=== PATIENT | female | born 1960 | race Caucasian/White ===

== ENCOUNTER 2016-08-25 12:06 | Inpatient (IN) | payer MEDICARE, MEDICAID ==
[~2016-08-25] VITALS: Ht 165.1 cm; Wt 67.4 kg
--- NOTE | 2016-08-25 15:01 | REP ---
RIGHT HIP, TWO VIEWS: There is no evidence of an acute fracture, dislocation or intrinsic bone disease. IMPRESSION: No fracture or dislocation. Signed by Oracio Vuong MD 08/25/2016 08:25 P
[2016-08-25 15:31] LABS: BASO % 0.2 % (0.0-1.0); EOS # 0.2 K/mm3 (0.0-0.50); EOS % 2.3 % (0.0-3.0); LARGE UNSTAINED CELL # 0.1 K/mm3 (0.0-0.4); LARGE UNSTAINED CELL % 1.7 % (0.0-4.0); LYMPH % 28.1 % (24.0-44.0); MEAN CORPUSCULAR HEMOGLOBIN 30.9 pg (27.0-33.0); MEAN CORPUSCULAR HGB CONC 33.9 g/dl (32.0-36.5); MONO # 0.5 K/mm3 (0.0-0.8); MONO % 7.2 % (0.0-5.0); NEUTROPHILS # 4.2 K/mm3 (1.8-7.7); NEUTROPHILS % 60.5 % (36.0-66.0); PLATELET COUNT, AUTOMATED 252 k/mm3 (150-450); RED CELL DISTRIBUTION WIDTH 12.4 % (11.5-14.5)
[2016-08-25] MEDS ORDERED: OMEP20CA3 PO (15:40)
[2016-08-25] MEDS ORDERED: MEMA1TAB2 PO (15:40)
[2016-08-25] MEDS ORDERED: MONT10TA2 PO (15:40)
[2016-08-25] MEDS ORDERED: OMEP40CA2 PO (15:41)
[2016-08-25 15:54] LABS: ALBUMIN 3.5 GM/DL (3.2-5.2); ALBUMIN/GLOBULIN RATIO 1.03 (1.00-1.93); ALKALINE PHOSPHATASE 119 U/L (45-117); ALT/SGPT 17 U/L (12-78); ANION GAP 5 MEQ/L (8-16); AST/SGOT 11 U/L (15-37); BILIRUBIN,DIRECT 0.1 MG/DL (0.0-0.2); BILIRUBIN,TOTAL 0.3 MG/DL (0.2-1.0); BLOOD UREA NITROGEN 19 MG/DL (7-18); CALCIUM LEVEL 8.6 MG/DL (8.5-10.1); CARBON DIOXIDE LEVEL 31 MEQ/L (21-32); CHLORIDE LEVEL 109 MEQ/L (98-107); CREATININE FOR GFR 0.55 MG/DL (0.55-1.02); GLOMERULAR FILTRATION RATE > 60.0 (>51); GLUCOSE, FASTING 120 MG/DL (70-105); POTASSIUM SERUM 4.1 MEQ/L (3.5-5.1); SODIUM LEVEL 145 MEQ/L (136-145); TOTAL PROTEIN 6.9 GM/DL (6.4-8.2)
[2016-08-25] MEDS ORDERED: ONDANSETRON 4MG/2ML VIAL (J2405) IV PRN (17:30)
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
[2016-08-25 20:50] VITALS: BP 150/83
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
[2016-08-25] MEDS: MEMANTINE 5MG TABLET (NAMENDA) PO SCH (22:08)
[2016-08-25] MEDS: SENOKOT S TAB PO SCH (22:08)
[2016-08-26 06:00] VITALS: BP 121/70
[2016-08-26 06:16] LABS: MEAN CORPUSCULAR HEMOGLOBIN 30.3 pg (27.0-33.0); MEAN CORPUSCULAR HGB CONC 33.5 g/dl (32.0-36.5); MEAN CORPUSCULAR VOLUME 90.6 fl (80.0-96.0); RED CELL DISTRIBUTION WIDTH 13.2 % (11.5-14.5); WHITE BLOOD COUNT 6.6 K/mm3 (4.0-10.0)
[2016-08-26 06:52] LABS: ANION GAP 8 MEQ/L (8-16); BLOOD UREA NITROGEN 19 MG/DL (7-18); CALCIUM LEVEL 8.2 MG/DL (8.5-10.1); CARBON DIOXIDE LEVEL 28 MEQ/L (21-32); CHLORIDE LEVEL 107 MEQ/L (98-107); GLOMERULAR FILTRATION RATE > 60.0 (>51); GLUCOSE, FASTING 100 MG/DL (70-105); MAGNESIUM LEVEL 2.3 MG/DL (1.8-2.4); SODIUM LEVEL 143 MEQ/L (136-145)
--- NOTE | 2016-08-26 08:06 | ECGEPIP ---
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 Order Number: [id number] Reading MD: Shanta Verduzco Measurements Intervals [place] Rate: 71 P: 55 [place]: 139 QRS: 7 QRSD: 85 T: 7 QT: 374 QTc: 407 Interpretive Statements SINUS RHYTHM NSTTW ABNORMALITY NO PRIOR FOR COMPARISON Electronically Signed On 08-26-2016 8:06:05 EST by Shanta Verduzco
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
[2016-08-26] MEDS: OMEPRAZOLE 20 MG CAP PO SCH (10:22)
[2016-08-26] MEDS: MONTELUKAST 10 MG TAB PO SCH (10:23)
[2016-08-26] MEDS: ACETAMINOPHEN TAB 650MG DOSE (2X325MG) PO PRN (10:23)
[2016-08-26] MEDS: SENOKOT S TAB PO SCH ×2 (10:24→21:08)
[2016-08-26] MEDS: ENOXAPARIN 30 MG/0.3 ML SYR (J1650) SC SCH (10:24)
[2016-08-26 12:00] VITALS: BP 114/69
[2016-08-26 14:00] VITALS: BP 127/74
[2016-08-26 20:00] VITALS: BP 140/68
[2016-08-26] MEDS: MEMANTINE 5MG TABLET (NAMENDA) PO SCH (21:08)
[2016-08-27 06:00] VITALS: BP 130/62
[2016-08-27 06:18] LABS: MEAN CORPUSCULAR HEMOGLOBIN 30.3 pg (27.0-33.0); MEAN CORPUSCULAR HGB CONC 33.4 g/dl (32.0-36.5); MEAN CORPUSCULAR VOLUME 90.6 fl (80.0-96.0); RED CELL DISTRIBUTION WIDTH 13.1 % (11.5-14.5); WHITE BLOOD COUNT 7.7 K/mm3 (4.0-10.0)
[2016-08-27 06:36] LABS: ANION GAP 5 MEQ/L (8-16); BLOOD UREA NITROGEN 18 MG/DL (7-18); CALCIUM LEVEL 8.7 MG/DL (8.5-10.1); CARBON DIOXIDE LEVEL 30 MEQ/L (21-32); CHLORIDE LEVEL 109 MEQ/L (98-107); CREATININE FOR GFR 0.55 MG/DL (0.55-1.02); GLOMERULAR FILTRATION RATE > 60.0 (>51); GLUCOSE, FASTING 97 MG/DL (70-105); MAGNESIUM LEVEL 2.2 MG/DL (1.8-2.4); POTASSIUM SERUM 4.2 MEQ/L (3.5-5.1); SODIUM LEVEL 144 MEQ/L (136-145)
[2016-08-27] MEDS ORDERED: INFLUENZA QUADRIVALENT PF VACCINE 0.5ML SYRINGE/VIAL (90686) IM ONE (09:00)
[2016-08-27] MEDS: SENOKOT S TAB PO SCH ×2 (09:08→20:17)
[2016-08-27] MEDS: OMEPRAZOLE 20 MG CAP PO SCH (09:09)
[2016-08-27] MEDS: MONTELUKAST 10 MG TAB PO SCH (09:09)
[2016-08-27] MEDS: ENOXAPARIN 30 MG/0.3 ML SYR (J1650) SC SCH (09:09)
[2016-08-27] MEDS: ACETAMINOPHEN TAB 650MG DOSE (2X325MG) PO PRN ×2 (10:01→20:18)
[2016-08-27 14:00] VITALS: BP 122/78
[2016-08-27] MEDS: MEMANTINE 5MG TABLET (NAMENDA) PO SCH (20:17)
[2016-08-27 22:00] VITALS: BP 119/77
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
[2016-08-28 06:00] VITALS: BP 111/70
[2016-08-28 06:58] LABS: MEAN CORPUSCULAR HEMOGLOBIN 30.2 pg (27.0-33.0); MEAN CORPUSCULAR HGB CONC 33.9 g/dl (32.0-36.5); RED CELL DISTRIBUTION WIDTH 13.1 % (11.5-14.5)
[2016-08-28 07:20] LABS: ANION GAP 4 MEQ/L (8-16); BLOOD UREA NITROGEN 16 MG/DL (7-18); CALCIUM LEVEL 9.1 MG/DL (8.5-10.1); CARBON DIOXIDE LEVEL 33 MEQ/L (21-32); CHLORIDE LEVEL 105 MEQ/L (98-107); GLOMERULAR FILTRATION RATE > 60.0 (>51); GLUCOSE, FASTING 101 MG/DL (70-105); MAGNESIUM LEVEL 2.3 MG/DL (1.8-2.4); POTASSIUM SERUM 3.9 MEQ/L (3.5-5.1); SODIUM LEVEL 142 MEQ/L (136-145)
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
[2016-08-28] MEDS: OMEPRAZOLE 20 MG CAP PO SCH (09:21)
[2016-08-28] MEDS: MONTELUKAST 10 MG TAB PO SCH (09:21)
[2016-08-28] MEDS: SENOKOT S TAB PO SCH ×2 (09:21→22:57)
[2016-08-28] MEDS: ENOXAPARIN 30 MG/0.3 ML SYR (J1650) SC SCH (09:21)
[2016-08-28] MEDS: LevoFLOXacin 500 MG TABLET PO SCH (11:38)
[2016-08-28] MEDS: ACETAMINOPHEN TAB 650MG DOSE (2X325MG) PO PRN ×2 (16:13→22:58)
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
[2016-08-28 22:00] VITALS: BP 114/69
[2016-08-28] MEDS: MEMANTINE 5MG TABLET (NAMENDA) PO SCH (22:58)
[2016-08-29] MEDS: LevoFLOXacin 500 MG TABLET PO SCH (06:01)
[2016-08-29 07:23] LABS: MEAN CORPUSCULAR HEMOGLOBIN 29.9 pg (27.0-33.0); MEAN CORPUSCULAR HGB CONC 33.8 g/dl (32.0-36.5); MEAN CORPUSCULAR VOLUME 88.4 fl (80.0-96.0); RED CELL DISTRIBUTION WIDTH 13.2 % (11.5-14.5); WHITE BLOOD COUNT 5.7 K/mm3 (4.0-10.0)
[2016-08-29 07:37] LABS: ANION GAP 7 MEQ/L (8-16); BLOOD UREA NITROGEN 16 MG/DL (7-18); CALCIUM LEVEL 9.1 MG/DL (8.5-10.1); CARBON DIOXIDE LEVEL 30 MEQ/L (21-32); CHLORIDE LEVEL 104 MEQ/L (98-107); CREATININE FOR GFR 0.59 MG/DL (0.55-1.02); GLOMERULAR FILTRATION RATE > 60.0 (>51); GLUCOSE, FASTING 96 MG/DL (70-105); MAGNESIUM LEVEL 2.3 MG/DL (1.8-2.4); POTASSIUM SERUM 4.2 MEQ/L (3.5-5.1); SODIUM LEVEL 141 MEQ/L (136-145)
[2016-08-29 08:20] VITALS: BP 116/73
[2016-08-29] MEDS: MONTELUKAST 10 MG TAB PO SCH (08:56)
[2016-08-29] MEDS: ENOXAPARIN 30 MG/0.3 ML SYR (J1650) SC SCH (08:58)
[2016-08-29] MEDS: SENOKOT S TAB PO SCH ×2 (08:58→20:08)
[2016-08-29] MEDS: OMEPRAZOLE 20 MG CAP PO SCH (09:03)
[2016-08-29 14:00] VITALS: BP 116/69
[2016-08-29] MEDS: MEMANTINE 5MG TABLET (NAMENDA) PO SCH (20:08)
[2016-08-29 22:00] VITALS: BP 137/87
[2016-08-30] MEDS: LevoFLOXacin 500 MG TABLET PO SCH (05:06)
[2016-08-30] MEDS: ACETAMINOPHEN TAB 650MG DOSE (2X325MG) PO PRN ×3 (06:47→17:28)
[2016-08-30 06:49] LABS: MEAN CORPUSCULAR HEMOGLOBIN 30.6 pg (27.0-33.0); MEAN CORPUSCULAR HGB CONC 34.4 g/dl (32.0-36.5); MEAN CORPUSCULAR VOLUME 88.9 fl (80.0-96.0); RED CELL DISTRIBUTION WIDTH 13.1 % (11.5-14.5); WHITE BLOOD COUNT 5.6 K/mm3 (4.0-10.0)
[2016-08-30 06:59] LABS: ANION GAP 7 MEQ/L (8-16); BLOOD UREA NITROGEN 13 MG/DL (7-18); CALCIUM LEVEL 8.9 MG/DL (8.5-10.1); CARBON DIOXIDE LEVEL 31 MEQ/L (21-32); CHLORIDE LEVEL 103 MEQ/L (98-107); CREATININE FOR GFR 0.54 MG/DL (0.55-1.02); GLOMERULAR FILTRATION RATE > 60.0 (>51); GLUCOSE, FASTING 93 MG/DL (70-105); MAGNESIUM LEVEL 2.2 MG/DL (1.8-2.4); POTASSIUM SERUM 3.9 MEQ/L (3.5-5.1); SODIUM LEVEL 141 MEQ/L (136-145)
[2016-08-30 08:30] VITALS: BP 114/74
[2016-08-30] MEDS: OMEPRAZOLE 20 MG CAP PO SCH (08:58)
[2016-08-30] MEDS: MONTELUKAST 10 MG TAB PO SCH (08:59)
[2016-08-30] MEDS: SENOKOT S TAB PO SCH ×2 (08:59→21:04)
[2016-08-30] MEDS: ENOXAPARIN 30 MG/0.3 ML SYR (J1650) SC SCH (09:00)
[2016-08-30] MEDS: MEMANTINE 5MG TABLET (NAMENDA) PO SCH (21:03)
[2016-08-31] MEDS: LevoFLOXacin 500 MG TABLET PO SCH (05:58)
[2016-08-31 06:00] VITALS: BP 109/69
[2016-08-31 06:46] LABS: MEAN CORPUSCULAR HEMOGLOBIN 30.2 pg (27.0-33.0); MEAN CORPUSCULAR HGB CONC 33.9 g/dl (32.0-36.5); RED CELL DISTRIBUTION WIDTH 13.3 % (11.5-14.5); WHITE BLOOD COUNT 5.7 K/mm3 (4.0-10.0)
[2016-08-31 07:03] LABS: ANION GAP 4 MEQ/L (8-16); BLOOD UREA NITROGEN 13 MG/DL (7-18); CALCIUM LEVEL 9.1 MG/DL (8.5-10.1); CARBON DIOXIDE LEVEL 32 MEQ/L (21-32); CHLORIDE LEVEL 104 MEQ/L (98-107); GLOMERULAR FILTRATION RATE > 60.0 (>51); GLUCOSE, FASTING 93 MG/DL (70-105); MAGNESIUM LEVEL 2.2 MG/DL (1.8-2.4); POTASSIUM SERUM 4.3 MEQ/L (3.5-5.1); SODIUM LEVEL 140 MEQ/L (136-145)
[2016-08-31] MEDS: OMEPRAZOLE 20 MG CAP PO SCH (09:47)
[2016-08-31] MEDS: ENOXAPARIN 30 MG/0.3 ML SYR (J1650) SC SCH (09:47)
[2016-08-31] MEDS: SENOKOT S TAB PO SCH ×2 (09:47→19:50)
[2016-08-31] MEDS: MONTELUKAST 10 MG TAB PO SCH (09:47)
[2016-08-31] MEDS: MEMANTINE 5MG TABLET (NAMENDA) PO SCH (19:50)
[2016-09-01] MEDS: LevoFLOXacin 500 MG TABLET PO SCH (06:27)
[2016-09-01 07:00] VITALS: BP 135/76
[2016-09-01 07:03] LABS: MEAN CORPUSCULAR HEMOGLOBIN 29.9 pg (27.0-33.0); MEAN CORPUSCULAR VOLUME 87.9 fl (80.0-96.0); RED CELL DISTRIBUTION WIDTH 13.2 % (11.5-14.5); WHITE BLOOD COUNT 6.5 K/mm3 (4.0-10.0)
[2016-09-01 07:19] LABS: ANION GAP 7 MEQ/L (8-16); BLOOD UREA NITROGEN 19 MG/DL (7-18); CALCIUM LEVEL 9.2 MG/DL (8.5-10.1); CARBON DIOXIDE LEVEL 30 MEQ/L (21-32); CHLORIDE LEVEL 106 MEQ/L (98-107); CREATININE FOR GFR 0.54 MG/DL (0.55-1.02); GLOMERULAR FILTRATION RATE > 60.0 (>51); GLUCOSE, FASTING 95 MG/DL (70-105); MAGNESIUM LEVEL 2.4 MG/DL (1.8-2.4); POTASSIUM SERUM 4.5 MEQ/L (3.5-5.1); SODIUM LEVEL 143 MEQ/L (136-145)
[2016-09-01] MEDS: OMEPRAZOLE 20 MG CAP PO SCH (08:31)
[2016-09-01] MEDS: SENOKOT S TAB PO SCH ×2 (08:31→19:46)
[2016-09-01] MEDS: MONTELUKAST 10 MG TAB PO SCH (08:32)
[2016-09-01] MEDS: ENOXAPARIN 30 MG/0.3 ML SYR (J1650) SC SCH (08:32)
[2016-09-01] MEDS: ACETAMINOPHEN TAB 650MG DOSE (2X325MG) PO PRN ×2 (10:44→19:46)
[2016-09-01] MEDS: MEMANTINE 5MG TABLET (NAMENDA) PO SCH (19:46)
[2016-09-02] MEDS: LevoFLOXacin 500 MG TABLET PO SCH (06:21)
[2016-09-02 07:00] VITALS: BP 140/86
[2016-09-02] MEDS: ACETAMINOPHEN TAB 650MG DOSE (2X325MG) PO PRN ×2 (08:39→19:31)
[2016-09-02] MEDS: MONTELUKAST 10 MG TAB PO SCH (08:40)
[2016-09-02] MEDS: OMEPRAZOLE 20 MG CAP PO SCH (08:40)
[2016-09-02] MEDS: ENOXAPARIN 30 MG/0.3 ML SYR (J1650) SC SCH (08:40)
[2016-09-02] MEDS: SENOKOT S TAB PO SCH ×2 (08:40→19:30)
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
[2016-09-02] MEDS: MEMANTINE 5MG TABLET (NAMENDA) PO SCH (19:30)
[2016-09-03] MEDS: LevoFLOXacin 500 MG TABLET PO SCH (06:17)
[2016-09-03 07:00] VITALS: BP 138/80
[2016-09-03] MEDS: OMEPRAZOLE 20 MG CAP PO SCH (09:27)
[2016-09-03] MEDS: MONTELUKAST 10 MG TAB PO SCH (09:27)
[2016-09-03] MEDS: ENOXAPARIN 30 MG/0.3 ML SYR (J1650) SC SCH (09:27)
[2016-09-03] MEDS: SENOKOT S TAB PO SCH ×2 (09:27→20:02)
[2016-09-03] MEDS: MEMANTINE 5MG TABLET (NAMENDA) PO SCH (20:02)
[2016-09-03] MEDS: ACETAMINOPHEN TAB 650MG DOSE (2X325MG) PO PRN (20:03)
[2016-09-04 07:00] VITALS: BP 139/98
[2016-09-04] MEDS: ACETAMINOPHEN TAB 650MG DOSE (2X325MG) PO PRN ×2 (08:28→20:05)
[2016-09-04] MEDS: OMEPRAZOLE 20 MG CAP PO SCH (08:28)
[2016-09-04] MEDS: MONTELUKAST 10 MG TAB PO SCH (08:28)
[2016-09-04] MEDS: SENOKOT S TAB PO SCH ×2 (08:28→20:04)
[2016-09-04] MEDS: ENOXAPARIN 30 MG/0.3 ML SYR (J1650) SC SCH (08:28)
[2016-09-04] MEDS: MEMANTINE 5MG TABLET (NAMENDA) PO SCH (20:04)
[2016-09-05 07:00] VITALS: BP 133/69
[2016-09-05] MEDS: SENOKOT S TAB PO SCH ×2 (08:59→19:26)
[2016-09-05] MEDS: ENOXAPARIN 30 MG/0.3 ML SYR (J1650) SC SCH (08:59)
[2016-09-05] MEDS: ACETAMINOPHEN TAB 650MG DOSE (2X325MG) PO PRN (08:59)
[2016-09-05] MEDS: MONTELUKAST 10 MG TAB PO SCH (08:59)
[2016-09-05] MEDS: OMEPRAZOLE 20 MG CAP PO SCH (08:59)
[2016-09-05 09:31] LABS: ANION GAP 7 MEQ/L (8-16); BLOOD UREA NITROGEN 12 MG/DL (7-18); CALCIUM LEVEL 9.2 MG/DL (8.5-10.1); CARBON DIOXIDE LEVEL 30 MEQ/L (21-32); CHLORIDE LEVEL 105 MEQ/L (98-107); CREATININE FOR GFR 0.64 MG/DL (0.55-1.02); GLOMERULAR FILTRATION RATE > 60.0 (>51); GLUCOSE, FASTING 136 MG/DL (70-105); POTASSIUM SERUM 3.8 MEQ/L (3.5-5.1); SODIUM LEVEL 142 MEQ/L (136-145)
[2016-09-05 09:35] LABS: MEAN CORPUSCULAR HGB CONC 34.5 g/dl (32.0-36.5); MEAN CORPUSCULAR VOLUME 89.8 fl (80.0-96.0); RED CELL DISTRIBUTION WIDTH 12.6 % (11.5-14.5)
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
[2016-09-05] MEDS: MEMANTINE 5MG TABLET (NAMENDA) PO SCH (19:26)
[2016-09-06 07:00] VITALS: BP 145/89
[2016-09-06] MEDS: MONTELUKAST 10 MG TAB PO SCH (08:27)
[2016-09-06] MEDS: SENOKOT S TAB PO SCH ×2 (08:27→19:49)
[2016-09-06] MEDS: OMEPRAZOLE 20 MG CAP PO SCH (08:27)
[2016-09-06] MEDS: ACETAMINOPHEN TAB 650MG DOSE (2X325MG) PO PRN ×2 (08:27→19:49)
[2016-09-06] MEDS: ENOXAPARIN 30 MG/0.3 ML SYR (J1650) SC SCH (08:27)
[2016-09-06] MEDS: MEMANTINE 5MG TABLET (NAMENDA) PO SCH (19:49)
[2016-09-07 07:00] VITALS: BP 129/69
[2016-09-07] MEDS: ENOXAPARIN 30 MG/0.3 ML SYR (J1650) SC SCH (08:22)
[2016-09-07] MEDS: OMEPRAZOLE 20 MG CAP PO SCH (08:23)
[2016-09-07] MEDS: MONTELUKAST 10 MG TAB PO SCH (08:23)
[2016-09-07] MEDS: SENOKOT S TAB PO SCH ×2 (08:23→19:40)
[2016-09-07] MEDS: ACETAMINOPHEN TAB 650MG DOSE (2X325MG) PO PRN (17:43)
[2016-09-07] MEDS: MEMANTINE 5MG TABLET (NAMENDA) PO SCH (19:40)
[2016-09-08 08:04] VITALS: BP 152/93
[2016-09-08] MEDS: ACETAMINOPHEN TAB 650MG DOSE (2X325MG) PO PRN ×2 (08:23→19:42)
[2016-09-08] MEDS: OMEPRAZOLE 20 MG CAP PO SCH (08:23)
[2016-09-08] MEDS: SENOKOT S TAB PO SCH ×2 (08:23→19:42)
[2016-09-08] MEDS: MONTELUKAST 10 MG TAB PO SCH (08:23)
[2016-09-08] MEDS: MEMANTINE 5MG TABLET (NAMENDA) PO SCH (19:42)
[2016-09-09 07:00] VITALS: BP 128/70
[2016-09-09] MEDS: MONTELUKAST 10 MG TAB PO SCH (08:13)
[2016-09-09] MEDS: OMEPRAZOLE 20 MG CAP PO SCH (08:13)
[2016-09-09] MEDS: SENOKOT S TAB PO SCH ×2 (08:13→19:46)
[2016-09-09] MEDS: ACETAMINOPHEN TAB 650MG DOSE (2X325MG) PO PRN ×2 (08:14→19:46)
[2016-09-09] MEDS: MEMANTINE 5MG TABLET (NAMENDA) PO SCH (19:46)
[2016-09-10 07:00] VITALS: BP 123/79
[2016-09-10] MEDS: ACETAMINOPHEN TAB 650MG DOSE (2X325MG) PO PRN ×3 (08:29→19:44)
[2016-09-10] MEDS: MONTELUKAST 10 MG TAB PO SCH (08:29)
[2016-09-10] MEDS: SENOKOT S TAB PO SCH ×2 (08:29→19:43)
[2016-09-10] MEDS: OMEPRAZOLE 20 MG CAP PO SCH (08:29)
[2016-09-10] MEDS: MEMANTINE 5MG TABLET (NAMENDA) PO SCH (19:44)
[2016-09-11 07:45] VITALS: BP 121/69
[2016-09-11] MEDS: MONTELUKAST 10 MG TAB PO SCH (09:16)
[2016-09-11] MEDS: SENOKOT S TAB PO SCH ×2 (09:16→20:04)
[2016-09-11] MEDS: OMEPRAZOLE 20 MG CAP PO SCH (09:16)
[2016-09-11] MEDS: MEMANTINE 5MG TABLET (NAMENDA) PO SCH (20:04)
[2016-09-11] MEDS: ACETAMINOPHEN TAB 650MG DOSE (2X325MG) PO PRN (20:04)
[2016-09-12 07:00] VITALS: BP 136/83
[2016-09-12 09:20] VITALS: BP 123/79
[2016-09-12] MEDS: SENOKOT S TAB PO SCH ×2 (09:21→20:05)
[2016-09-12] MEDS: OMEPRAZOLE 20 MG CAP PO SCH (09:21)
[2016-09-12] MEDS: MONTELUKAST 10 MG TAB PO SCH (09:21)
[2016-09-12] MEDS: ACETAMINOPHEN TAB 650MG DOSE (2X325MG) PO PRN (11:02)
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
[2016-09-12] MEDS: MEMANTINE 5MG TABLET (NAMENDA) PO SCH (20:05)
[2016-09-13 07:00] VITALS: BP_SYST 124; BP_SYST 140; BP_DIAS 63; BP_DIAS 65
[2016-09-13] MEDS: SENOKOT S TAB PO SCH ×2 (08:55→19:47)
[2016-09-13] MEDS: MONTELUKAST 10 MG TAB PO SCH (08:55)
[2016-09-13] MEDS: OMEPRAZOLE 20 MG CAP PO SCH (08:56)
[2016-09-13] MEDS: ACETAMINOPHEN TAB 650MG DOSE (2X325MG) PO PRN ×2 (08:56→19:47)
[2016-09-13] MEDS: MEMANTINE 5MG TABLET (NAMENDA) PO SCH (19:47)
[2016-09-14 08:00] VITALS: BP 160/96
[2016-09-14] MEDS: OMEPRAZOLE 20 MG CAP PO SCH (08:17)
[2016-09-14] MEDS: SENOKOT S TAB PO SCH ×2 (08:17→19:38)
[2016-09-14] MEDS: ACETAMINOPHEN TAB 650MG DOSE (2X325MG) PO PRN ×2 (08:17→19:38)
[2016-09-14] MEDS: MONTELUKAST 10 MG TAB PO SCH (08:17)
[2016-09-14] MEDS: MEMANTINE 5MG TABLET (NAMENDA) PO SCH (19:38)
[2016-09-15 08:00] VITALS: BP 137/87
[2016-09-15] MEDS: MONTELUKAST 10 MG TAB PO SCH (08:53)
[2016-09-15] MEDS: SENOKOT S TAB PO SCH ×2 (08:54→19:53)
[2016-09-15] MEDS: OMEPRAZOLE 20 MG CAP PO SCH (08:54)
[2016-09-15] MEDS: MEMANTINE 5MG TABLET (NAMENDA) PO SCH (19:53)
[2016-09-15] MEDS: ACETAMINOPHEN TAB 650MG DOSE (2X325MG) PO PRN (19:53)
[2016-09-16 07:00] VITALS: BP 140/90
[2016-09-16] MEDS: SENOKOT S TAB PO SCH ×2 (09:33→19:57)
[2016-09-16] MEDS: OMEPRAZOLE 20 MG CAP PO SCH (09:33)
[2016-09-16] MEDS: MONTELUKAST 10 MG TAB PO SCH (09:33)
[2016-09-16] MEDS: ACETAMINOPHEN TAB 650MG DOSE (2X325MG) PO PRN ×2 (09:34→19:57)
[2016-09-16] MEDS: MEMANTINE 5MG TABLET (NAMENDA) PO SCH (19:57)
[2016-09-17 07:00] VITALS: BP 142/92
[2016-09-17] MEDS: MONTELUKAST 10 MG TAB PO SCH (09:10)
[2016-09-17] MEDS: SENOKOT S TAB PO SCH ×2 (09:10→20:04)
[2016-09-17] MEDS: OMEPRAZOLE 20 MG CAP PO SCH (09:11)
[2016-09-17] MEDS: MEMANTINE 5MG TABLET (NAMENDA) PO SCH (20:03)
[2016-09-17] MEDS: ACETAMINOPHEN TAB 650MG DOSE (2X325MG) PO PRN (20:04)
[2016-09-17] MEDS ORDERED: diphenhydrAMINE 25 MG CAP PO PRN (22:15)
[2016-09-18] MEDS: MONTELUKAST 10 MG TAB PO SCH (07:57)
[2016-09-18] MEDS: SENOKOT S TAB PO SCH ×2 (07:57→19:50)
[2016-09-18] MEDS: ACETAMINOPHEN TAB 650MG DOSE (2X325MG) PO PRN ×2 (07:57→19:50)
[2016-09-18] MEDS: OMEPRAZOLE 20 MG CAP PO SCH (07:57)
[2016-09-18 08:00] VITALS: BP 137/88
[2016-09-18] MEDS: MEMANTINE 5MG TABLET (NAMENDA) PO SCH (19:50)
[2016-09-18] MEDS: RAMELTEON 8 MG TAB (ROZEREM) PO SCH (19:50)
[2016-09-19] MEDS: LevoFLOXacin 500 MG TABLET PO SCH (05:57)
[2016-09-19 06:59] LABS: MEAN CORPUSCULAR HGB CONC 34.1 g/dl (32.0-36.5); RED CELL DISTRIBUTION WIDTH 13.4 % (11.5-14.5); WHITE BLOOD COUNT 5.6 K/mm3 (4.0-10.0)
[2016-09-19 07:00] VITALS: BP 122/88
[2016-09-19 07:23] LABS: ANION GAP 8 MEQ/L (8-16); BLOOD UREA NITROGEN 11 MG/DL (7-18); CALCIUM LEVEL 9.2 MG/DL (8.5-10.1); CARBON DIOXIDE LEVEL 30 MEQ/L (21-32); CHLORIDE LEVEL 103 MEQ/L (98-107); CREATININE FOR GFR 0.61 MG/DL (0.55-1.02); GLOMERULAR FILTRATION RATE > 60.0 (>51); GLUCOSE, FASTING 103 MG/DL (70-105); POTASSIUM SERUM 4.1 MEQ/L (3.5-5.1); SODIUM LEVEL 141 MEQ/L (136-145)
[2016-09-19] MEDS: SENOKOT S TAB PO SCH ×2 (08:44→19:56)
[2016-09-19] MEDS: OMEPRAZOLE 20 MG CAP PO SCH (08:44)
[2016-09-19] MEDS: MONTELUKAST 10 MG TAB PO SCH (08:44)
[2016-09-19] MEDS: ACETAMINOPHEN TAB 650MG DOSE (2X325MG) PO PRN ×2 (08:44→19:57)
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
[2016-09-19] MEDS: ASPIRIN 81 MG ENTERIC TAB PO SCH (14:18)
[2016-09-19] MEDS: ENOXAPARIN 30 MG/0.3 ML SYR (J1650) SC SCH (14:18)
[2016-09-19] MEDS: MEMANTINE 5MG TABLET (NAMENDA) PO SCH (19:56)
[2016-09-19] MEDS: RAMELTEON 8 MG TAB (ROZEREM) PO SCH (19:57)
[2016-09-20] MEDS: LevoFLOXacin 500 MG TABLET PO SCH (06:04)
[2016-09-20 07:00] VITALS: BP 126/79
[2016-09-20] MEDS: ENOXAPARIN 30 MG/0.3 ML SYR (J1650) SC SCH (08:43)
[2016-09-20] MEDS: MONTELUKAST 10 MG TAB PO SCH (08:43)
[2016-09-20] MEDS: OMEPRAZOLE 20 MG CAP PO SCH (08:43)
[2016-09-20] MEDS: SENOKOT S TAB PO SCH ×2 (08:43→20:16)
[2016-09-20] MEDS: ACETAMINOPHEN TAB 650MG DOSE (2X325MG) PO PRN ×2 (08:43→20:15)
[2016-09-20] MEDS: ASPIRIN 81 MG ENTERIC TAB PO SCH (08:43)
[2016-09-20] MEDS: RAMELTEON 8 MG TAB (ROZEREM) PO SCH (20:15)
[2016-09-20] MEDS: MEMANTINE 5MG TABLET (NAMENDA) PO SCH (20:16)
[2016-09-21] MEDS: LevoFLOXacin 500 MG TABLET PO SCH (06:26)
[2016-09-21 08:00] VITALS: BP 159/91
[2016-09-21] MEDS: SENOKOT S TAB PO SCH ×2 (09:18→19:53)
[2016-09-21] MEDS: OMEPRAZOLE 20 MG CAP PO SCH (09:18)
[2016-09-21] MEDS: MONTELUKAST 10 MG TAB PO SCH (09:18)
[2016-09-21] MEDS: ENOXAPARIN 30 MG/0.3 ML SYR (J1650) SC SCH (09:19)
[2016-09-21] MEDS: ASPIRIN 81 MG ENTERIC TAB PO SCH (09:19)
[2016-09-21] MEDS: RAMELTEON 8 MG TAB (ROZEREM) PO SCH (19:53)
[2016-09-21] MEDS: MEMANTINE 5MG TABLET (NAMENDA) PO SCH (19:53)
[2016-09-21] MEDS: ACETAMINOPHEN TAB 650MG DOSE (2X325MG) PO PRN (19:54)
[2016-09-22] MEDS: LevoFLOXacin 500 MG TABLET PO SCH (05:58)
[2016-09-22 08:00] VITALS: BP 122/58
[2016-09-22] MEDS: OMEPRAZOLE 20 MG CAP PO SCH (08:19)
[2016-09-22] MEDS: MONTELUKAST 10 MG TAB PO SCH (08:19)
[2016-09-22] MEDS: ASPIRIN 81 MG ENTERIC TAB PO SCH (08:19)
[2016-09-22] MEDS: SENOKOT S TAB PO SCH ×2 (08:19→19:30)
[2016-09-22] MEDS: ENOXAPARIN 30 MG/0.3 ML SYR (J1650) SC SCH (08:20)
[2016-09-22] MEDS: ACETAMINOPHEN TAB 650MG DOSE (2X325MG) PO PRN (19:30)
[2016-09-22] MEDS: RAMELTEON 8 MG TAB (ROZEREM) PO SCH (19:30)
[2016-09-22] MEDS: MEMANTINE 5MG TABLET (NAMENDA) PO SCH (19:30)
[2016-09-23] MEDS: LevoFLOXacin 500 MG TABLET PO SCH (06:23)
[2016-09-23 07:00] VITALS: BP 165/96
[2016-09-23] MEDS: ASPIRIN 81 MG ENTERIC TAB PO SCH (09:13)
[2016-09-23] MEDS: OMEPRAZOLE 20 MG CAP PO SCH (09:13)
[2016-09-23] MEDS: SENOKOT S TAB PO SCH ×2 (09:13→19:51)
[2016-09-23] MEDS: MONTELUKAST 10 MG TAB PO SCH (09:13)
[2016-09-23] MEDS: RAMELTEON 8 MG TAB (ROZEREM) PO SCH (19:51)
[2016-09-23] MEDS: MEMANTINE 5MG TABLET (NAMENDA) PO SCH (19:51)
[2016-09-23] MEDS: ACETAMINOPHEN TAB 650MG DOSE (2X325MG) PO PRN (19:51)
[2016-09-24 07:00] VITALS: BP 151/58
[2016-09-24] MEDS: MONTELUKAST 10 MG TAB PO SCH (08:35)
[2016-09-24] MEDS: SENOKOT S TAB PO SCH ×2 (08:35→20:07)
[2016-09-24] MEDS: ASPIRIN 81 MG ENTERIC TAB PO SCH (08:35)
[2016-09-24] MEDS: OMEPRAZOLE 20 MG CAP PO SCH (08:35)
[2016-09-24] MEDS: MEMANTINE 5MG TABLET (NAMENDA) PO SCH (20:07)
[2016-09-24] MEDS: ACETAMINOPHEN TAB 650MG DOSE (2X325MG) PO PRN (20:07)
[2016-09-24] MEDS: RAMELTEON 8 MG TAB (ROZEREM) PO SCH (20:07)
[2016-09-25 08:00] VITALS: BP 135/67
[2016-09-25] MEDS: ASPIRIN 81 MG ENTERIC TAB PO SCH (08:55)
[2016-09-25] MEDS: SENOKOT S TAB PO SCH ×2 (08:55→19:54)
[2016-09-25] MEDS: OMEPRAZOLE 20 MG CAP PO SCH (08:55)
[2016-09-25] MEDS: MONTELUKAST 10 MG TAB PO SCH (08:55)
[2016-09-25] MEDS ORDERED: ASPI81TAEC PO (14:58)
[2016-09-25] MEDS ORDERED: ROZE8TAB9 PO (14:58)
[2016-09-25] MEDS ORDERED: SENN1TAB2 PO (14:58)
[2016-09-25] MEDS: RAMELTEON 8 MG TAB (ROZEREM) PO SCH (19:54)
[2016-09-25] MEDS: MEMANTINE 5MG TABLET (NAMENDA) PO SCH (19:54)
[2016-09-25] MEDS: ACETAMINOPHEN TAB 650MG DOSE (2X325MG) PO PRN (19:55)
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
[2016-09-26 06:34] LABS: MEAN CORPUSCULAR HEMOGLOBIN 30.3 pg (27.0-33.0); MEAN CORPUSCULAR HGB CONC 33.3 g/dl (32.0-36.5); RED CELL DISTRIBUTION WIDTH 12.6 % (11.5-14.5); WHITE BLOOD COUNT 6.1 K/mm3 (4.0-10.0)
[2016-09-26 06:47] LABS: ANION GAP 4 MEQ/L (8-16); BLOOD UREA NITROGEN 22 MG/DL (7-18); CALCIUM LEVEL 8.6 MG/DL (8.5-10.1); CARBON DIOXIDE LEVEL 32 MEQ/L (21-32); CHLORIDE LEVEL 109 MEQ/L (98-107); GLOMERULAR FILTRATION RATE > 60.0 (>51); GLUCOSE, FASTING 87 MG/DL (70-105); SODIUM LEVEL 145 MEQ/L (136-145)
[2016-09-26 08:00] VITALS: BP 143/81
[2016-09-26 08:14] VITALS: BP 143/81
[2016-09-26] MEDS: MONTELUKAST 10 MG TAB PO SCH (08:22)
[2016-09-26] MEDS: OMEPRAZOLE 20 MG CAP PO SCH (08:22)
[2016-09-26] MEDS: ASPIRIN 81 MG ENTERIC TAB PO SCH (08:22)
[2016-09-26] MEDS: SENOKOT S TAB PO SCH (08:22)
--- NOTE | 2016-09-26 16:33 | DSES ---
DATE OF ADMISSION: 08/28/2016 DATE OF DISCHARGE: 09/26/2015 ADDENDUM: Called by web content & social media manager. The patient is scheduled to be discharged to [facility] on 09/26/2016. Please refer to discharge summary done on 09/25/2016. Discharge summary done one day ahead of time in preparation for discharge. The patient is currently comfortable, tolerating diet, in no acute distress. Denies any significant pain. Please refer to discharge summary done on 09/25/2016.
== END 2016-09-26 10:00 | DRG 884 ==
LOC: M ED 12:06 → M ED INP 17:17 → M MS5PR 20:52 → OBSVTOIN 08-28 09:14 → M MS5PR 08-31 18:35
PROVIDERS: ADMIT Hospitalist; ATTEND Hospitalist
DX: F03.90 Unspecified dementia, unspecified severity, without behavioral disturbance, psychotic disturbance, mood disturbance, and anxiety (principal); N39.0 Urinary tract infection, site not specified; T76.11XA Adult physical abuse, suspected, initial encounter; I48.0 Paroxysmal atrial fibrillation; K21.9 Gastro-esophageal reflux disease without esophagitis; J45.909 Unspecified asthma, uncomplicated; Z79.82 Long term (current) use of aspirin; Z79.899 Other long term (current) drug therapy; Z88.0 Allergy status to penicillin; Z88.5 Allergy status to narcotic agent; Z88.2 Allergy status to sulfonamides; R29.6 Repeated falls

== ENCOUNTER → 2017-01-14 | Outpatient (REF) | payer MEDICARE, MEDICAID ==
[~2017-01-14] MED LIST: ASPI81TAEC PO; MEMA1TAB2 PO; MONT10TA2 PO; OMEP20CA3 PO; OMEP40CA2 PO; ROZE8TAB9 PO; SENN1TAB2 PO
[2017-01-14 07:27] LABS: MEAN CORPUSCULAR HEMOGLOBIN 30.8 pg (27.0-33.0); MEAN CORPUSCULAR HGB CONC 34.2 g/dl (32.0-36.5); MEAN CORPUSCULAR VOLUME 89.9 fl (80.0-96.0); RED CELL DISTRIBUTION WIDTH 12.4 % (11.5-14.5); WHITE BLOOD COUNT 6.6 K/mm3 (4.0-10.0)
== END ==
LOC: SKLAB6 07:11
DX: K92.1 Melena (principal)

== ENCOUNTER → 2017-01-18 | Outpatient (REF) | payer MEDICARE, MEDICAID | LOC: SKLAB6 07:00 | DX: K92.1 Melena (principal) ==

== ENCOUNTER → 2017-01-21 | Outpatient (REF) | payer MEDICARE, MEDICAID | LOC: M LAB 11:58 | DX: K92.1 Melena (principal) ==

== ENCOUNTER → 2017-01-24 | Outpatient (REF) | payer MEDICARE, MEDICAID | LOC: SKLAB6 09:40 | DX: R19.5 Other fecal abnormalities (principal) ==

== ENCOUNTER → 2017-02-01 | Outpatient (REF) | payer MEDICARE, MEDICAID ==
[2017-02-01 09:13] LABS: MEAN CORPUSCULAR HGB CONC 34.3 g/dl (32.0-36.5); MEAN CORPUSCULAR VOLUME 93.4 fl (80.0-96.0); RED CELL DISTRIBUTION WIDTH 12.5 % (11.5-14.5)
[2017-02-01 09:55] LABS: ANION GAP 9 MEQ/L (8-16); BLOOD UREA NITROGEN 17 MG/DL (7-18); CARBON DIOXIDE LEVEL 30 MEQ/L (21-32); CHLORIDE LEVEL 105 MEQ/L (98-107); CHOLESTEROL LEVEL 226 MG/DL (<200); CREATININE FOR GFR 0.62 MG/DL (0.55-1.02); GLOMERULAR FILTRATION RATE > 60.0 (>51); GLUCOSE, FASTING 135 MG/DL (70-105); POTASSIUM SERUM 4.1 MEQ/L (3.5-5.1); SODIUM LEVEL 144 MEQ/L (136-145); TRIGLYCERIDES LEVEL 98 MG/DL (<150)
== END ==
LOC: SKLAB6 07:00
DX: G30.0 Alzheimer's disease with early onset (principal)

== ENCOUNTER → 2017-04-26 | Outpatient (REF) | payer MEDICARE, MEDICAID ==
[~2017-04-26] MED LIST changes: +ROZE8TAB16 PO; -ROZE8TAB9 PO
[2017-04-26 13:19] LABS: BASO % 0.4 % (0.0-1.0); EOS # 0.3 K/mm3 (0.0-0.50); EOS % 5.6 % (0.0-3.0); LARGE UNSTAINED CELL # 0.1 K/mm3 (0.0-0.4); LARGE UNSTAINED CELL % 1.7 % (0.0-4.0); LYMPH # 1.6 K/mm3 (1.5-4.5); LYMPH % 26.4 % (24.0-44.0); MEAN CORPUSCULAR HEMOGLOBIN 30.7 pg (27.0-33.0); MEAN CORPUSCULAR HGB CONC 34.5 g/dl (32.0-36.5); MONO # 0.4 K/mm3 (0.0-0.8); MONO % 7.2 % (0.0-5.0); NEUTROPHILS # 3.6 K/mm3 (1.8-7.7); NEUTROPHILS % 58.8 % (36.0-66.0); PLATELET COUNT, AUTOMATED 228 k/mm3 (150-450); RED CELL DISTRIBUTION WIDTH 12.2 % (11.5-14.5)
[2017-04-26 13:42] LABS: ANION GAP 8 MEQ/L (8-16); BLOOD UREA NITROGEN 12 MG/DL (7-18); CALCIUM LEVEL 8.7 MG/DL (8.5-10.1); CARBON DIOXIDE LEVEL 30 MEQ/L (21-32); CHLORIDE LEVEL 106 MEQ/L (98-107); CREATININE FOR GFR 0.53 MG/DL (0.55-1.02); GLOMERULAR FILTRATION RATE > 60.0 (>51); GLUCOSE, FASTING 76 MG/DL (70-105); POTASSIUM SERUM 3.7 MEQ/L (3.5-5.1); SODIUM LEVEL 144 MEQ/L (136-145)
== END ==
LOC: SKLAB6 08:00
DX: R41.82 Altered mental status, unspecified (principal)
CPT/HCPCS: 36415; 80048; 81001; 85025; 87088; 87186; G0480

== ENCOUNTER → 2017-05-03 | Outpatient (CLI) | payer MEDICARE, MEDICAID ==
--- NOTE | 2017-05-03 10:08 | REPMRS ---
Patient History The patient states she has not had a clinical breast exam in over a year. Patient is postmenopausal. No known family history of cancer. Digital Mammo Screening Bilat: May 03, 2017 - Exam #: [id number] Bilateral CC and MLO view(s) were taken. Technologist: Lashay Avila, Technologist Prior study comparison: March 14, 2013, digital woman screen mammo, performed at [facility] to [facility]. September 04, 2011, bilateral bilat screen digital mammo, performed at [facility] to [facility]. FINDINGS: There are scattered fibroglandular densities. There has been no change in the appearance of the mammogram from the prior studies. There is a mild amount of residual fibroglandular tissue which is fairly symmetric. There is no interval development of dominant mass, architectural distortion, or clustered microcalcification suggestive of malignancy. ASSESSMENT: BI-RADS/ACR category 1 mammogram. Negative. Recommendation Routine screening mammogram in 1 year (for women over age 40). This mammogram was interpreted with the aid of an FDA-approved computer-aided dectection system. Electronically Signed By: Oracio Vuong MD 05/03/17 [id number]
== END ==
LOC: M RAD 09:35
PROVIDERS: ATTEND Nurse Practitioner Adult Health
DX: Z12.31 Encounter for screening mammogram for malignant neoplasm of breast (principal); Z78.0 Asymptomatic menopausal state

== ENCOUNTER 2017-07-05 06:45 | Emergency (ER) | payer MEDICARE, MEDICAID ==
[~2017-07-05] VITALS: Ht 165.1 cm; Wt 69.1 kg
[2017-07-05] MEDS ORDERED: MIDAZOLAM INJ 2 MG/2 ML VIAL (J2250) IV STA ×2 (07:21→07:44)
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
--- NOTE | 2017-07-05 07:30 | REPUSA ---
CLINICAL HISTORY: Neck pain. TECHNIQUE: Multiple axial images were obtained through the cervical spine. Images were also reconstru cted in coronal and sagittal planes. The study was performed without IV contrast. COMMENTS: Grade 1 anterolisthesis of C5 on C6. There is no fracture or spondylolisthesis visualized. The paraspinal soft tissues are unremarkable. T here are no lytic or blastic lesions. Straightening of cervical lordosis is seen, suggesting muscular spasm. There is evidence of minimal m ultilevel disk disease, demonstrated by minimal osteophytosis and endplate sclerosis. No significant disk herniation is noted at any level. Canal and foramina remain patent. IMPRESSION: 1. No fracture or spondylolisthesis. 2. Straightening of cervical lordosis is seen, suggesting muscular spasm. 3. Minimal multilevel spondylosis. Thank you for your kind referral of this patient.
[2017-07-05 07:33] LABS: BASO # 0.1 10^3/uL (0.0-0.2); BASO % 0.5 % (0.0-1.0); EOS # 0.3 10^3/uL (0.0-0.50); LYMPH # 3.8 10^3/uL (1.5-4.5); LYMPH % 35.3 % (24.0-44.0); MEAN CORPUSCULAR HEMOGLOBIN 29.8 pg (27.0-33.0); MEAN CORPUSCULAR HGB CONC 33.6 g/dl (32.0-36.5); MEAN CORPUSCULAR VOLUME 88.8 fl (80.0-96.0); MONO # 0.6 10^3/uL (0.0-0.8); MONO % 5.5 % (0.0-5.0); NEUTROPHILS # 5.7 10^3/uL (1.8-7.7); NEUTROPHILS % 53.7 % (36.0-66.0); PLATELET COUNT, AUTOMATED 263 10^3/uL (150-450); RED CELL DISTRIBUTION WIDTH 12.4 % (11.5-14.5); WHITE BLOOD COUNT 10.6 10^3/uL (4.0-10.0)
[2017-07-05 08:08] LABS: ALBUMIN/GLOBULIN RATIO 1.18 (1.00-1.93); ALKALINE PHOSPHATASE 103 U/L (45-117); ALT/SGPT 29 U/L (12-78); ANION GAP 14 MEQ/L (8-16); AST/SGOT 21 U/L (15-37); BILIRUBIN,DIRECT 0.1 MG/DL (0.0-0.2); BILIRUBIN,TOTAL 0.5 MG/DL (0.2-1.0); BLOOD UREA NITROGEN 18 MG/DL (7-18); CALCIUM LEVEL 9.6 MG/DL (8.5-10.1); CARBON DIOXIDE LEVEL 22 MEQ/L (21-32); CHLORIDE LEVEL 104 MEQ/L (98-107); CREATININE FOR GFR 0.63 MG/DL (0.55-1.02); GLOMERULAR FILTRATION RATE > 60.0 (>51); GLUCOSE, FASTING 204 MG/DL (70-105); POTASSIUM SERUM 4.2 MEQ/L (3.5-5.1); SODIUM LEVEL 140 MEQ/L (136-145); TOTAL PROTEIN 7.4 GM/DL (6.4-8.2)
[2017-07-05] MEDS ORDERED: NS 500 ML IV ONE (08:30)
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
[2017-07-05 12:09] VITALS: BP 132/75
--- NOTE | 2017-07-06 07:38 | ECGEPIP ---
Stationary ECG Study [facility] - ED Test Date: 2017-07-05 Pat Name: SUNNY SAINI Department: Room: - Gender: F Field Assistant: JT : 1960 Requested By: Shanta Verduzco Order Number: [id number] Reading MD: Shanta Verduzco Measurements Intervals [place] Rate: 130 P: 77 [place]: 137 QRS: 11 QRSD: 81 T: -7 QT: 335 QTc: 493 Interpretive Statements SINUS TACHYCARDIA WITH FREQUENT VENTRICULAR PREMATURE COMPLEXES SIGNIFICANT BASELINE ARTIFACT LIMITS INTERPRETATION NONSPECIFIC ST & T-WAVE ABNORMALITY ABNORMAL RHYTHM ECG Electronically Signed On 07-06-2017 7:37:42 EDT by Shanta Verduzco
== END 2017-07-05 12:30 | disposition home or self-care (01) ==
LOC: EDBD 06:45 → M ED 06:45
DX: F03.90 Unspecified dementia, unspecified severity, without behavioral disturbance, psychotic disturbance, mood disturbance, and anxiety (principal); W19.XXXA Unspecified fall, initial encounter; Y92.129 Unspecified place in nursing home as the place of occurrence of the external cause; Y93.9 Activity, unspecified; Y99.9 Unspecified external cause status; R94.31 Abnormal electrocardiogram [ECG] [EKG]; R00.0 Tachycardia, unspecified; M47.9 Spondylosis, unspecified; M54.5 Low back pain; N39.0 Urinary tract infection, site not specified; I48.91 Unspecified atrial fibrillation; R56.9 Unspecified convulsions; I10 Essential (primary) hypertension; K21.9 Gastro-esophageal reflux disease without esophagitis; J45.909 Unspecified asthma, uncomplicated; G20 Parkinson's disease; Z79.82 Long term (current) use of aspirin; Z79.899 Other long term (current) drug therapy; Z88.5 Allergy status to narcotic agent; Z88.0 Allergy status to penicillin; Z88.2 Allergy status to sulfonamides
CPT/HCPCS: 36415; 70450; 72072; 72125; 80048; 80076; 81001; 82550; 82553; 84443; 84484; 85025; 87088; 87186; 93005; 93041; 94760; 99291; G0480; J2250

== ENCOUNTER → 2017-07-05 | Outpatient (REF) | payer MEDICARE, MEDICAID | LOC: SKLAB6 21:23 | DX: M54.5 Low back pain (principal); N39.0 Urinary tract infection, site not specified; I48.91 Unspecified atrial fibrillation; R56.9 Unspecified convulsions ==

== ENCOUNTER → 2017-07-05 | Outpatient (REF) | payer MEDICARE, MEDICAID ==
--- NOTE | 2017-07-05 15:33 | ECGEPIP ---
Stationary ECG Study [facility] Test Date: 2017-07-05 Pat Name: SUNNY SAINI Department: Room: - Gender: F Director Of Marketing Operations: ANDI : 1960 Requested By: ABI QUAN Order Number: [id number] Reading MD: Renetta Hogue Measurements Intervals [place] Rate: 86 P: 74 [place]: 152 QRS: 31 QRSD: 87 T: 34 QT: 343 QTc: 411 Interpretive Statements SINUS RHYTHM WITH OCCASIONAL VENTRICULAR PREMATURE COMPLEXES RATE SANTOSH SWIFT 08/25/16 Electronically Signed On 07-05-2017 15:32:58 EDT by Renetta Hogue
[2017-07-20 08:06] LABS: CARBIDOPA None Detected (.)
== END ==
LOC: SKLAB6 14:00
DX: I48.91 Unspecified atrial fibrillation (principal); R41.82 Altered mental status, unspecified

== ENCOUNTER → 2017-07-06 | Outpatient (REF) | payer MEDICARE, MEDICAID ==
[2017-07-06 08:06] LABS: MEAN CORPUSCULAR HEMOGLOBIN 29.6 pg (27.0-33.0); MEAN CORPUSCULAR HGB CONC 33.2 g/dl (32.0-36.5); MEAN CORPUSCULAR VOLUME 89.1 fl (80.0-96.0); RED CELL DISTRIBUTION WIDTH 12.4 % (11.5-14.5); WHITE BLOOD COUNT 8.1 10^3/uL (4.0-10.0)
[2017-07-06 08:31] LABS: ANION GAP 7 MEQ/L (8-16); BLOOD UREA NITROGEN 18 MG/DL (7-18); CALCIUM LEVEL 9.2 MG/DL (8.5-10.1); CARBON DIOXIDE LEVEL 30 MEQ/L (21-32); CHLORIDE LEVEL 106 MEQ/L (98-107); CREATININE FOR GFR 0.58 MG/DL (0.55-1.02); GLOMERULAR FILTRATION RATE > 60.0 (>51); GLUCOSE, FASTING 96 MG/DL (70-105); POTASSIUM SERUM 4.2 MEQ/L (3.5-5.1); SODIUM LEVEL 143 MEQ/L (136-145)
== END ==
LOC: SKLAB6 07-06 07:00
DX: I48.91 Unspecified atrial fibrillation (principal)

== ENCOUNTER → 2017-08-02 | Outpatient (REF) | payer MEDICARE, MEDICAID | LOC: SKLAB6 07:00 | DX: N39.0 Urinary tract infection, site not specified (principal); B96.20 Unspecified Escherichia coli [E. coli] as the cause of diseases classified elsewhere ==

== ENCOUNTER → 2017-08-02 | Outpatient (REF) | payer MEDICARE, MEDICAID ==
[2017-08-02 08:33] LABS: MEAN CORPUSCULAR HEMOGLOBIN 29.6 pg (27.0-33.0); MEAN CORPUSCULAR HGB CONC 33.3 g/dl (32.0-36.5); MEAN CORPUSCULAR VOLUME 88.9 fl (80.0-96.0); PLATELET COUNT, AUTOMATED 316 10^3/uL (150-450); RED CELL DISTRIBUTION WIDTH 12.8 % (11.5-14.5); WHITE BLOOD COUNT 7.2 10^3/uL (4.0-10.0)
[2017-08-02 08:53] LABS: ANION GAP 8 MEQ/L (8-16); BLOOD UREA NITROGEN 8 MG/DL (7-18); CALCIUM LEVEL 9.5 MG/DL (8.5-10.1); CARBON DIOXIDE LEVEL 27 MEQ/L (21-32); CHLORIDE LEVEL 105 MEQ/L (98-107); CREATININE FOR GFR 0.41 MG/DL (0.55-1.02); GLOMERULAR FILTRATION RATE > 60.0 (>51); GLUCOSE, FASTING 140 MG/DL (70-105); POTASSIUM SERUM 3.9 MEQ/L (3.5-5.1); SODIUM LEVEL 140 MEQ/L (136-145)
== END ==
LOC: SKLAB6 07:00
DX: G30.1 Alzheimer's disease with late onset (principal)

== ENCOUNTER → 2017-08-06 | Outpatient (REF) | payer MEDICARE, MEDICAID ==
[2017-08-06 15:42] LABS: PERCENT SATURATION 15.7 % (13.2-45.0)
== END ==
LOC: SKLAB6 14:53
DX: G30.9 Alzheimer's disease, unspecified (principal); F02.80 Dementia in other diseases classified elsewhere, unspecified severity, without behavioral disturbance, psychotic disturbance, mood disturbance, and anxiety; I48.0 Paroxysmal atrial fibrillation

== ENCOUNTER → 2017-08-21 | Outpatient (REF) | payer MEDICARE, MEDICAID | LOC: SKLAB6 08-20 13:00 | DX: N39.0 Urinary tract infection, site not specified (principal) ==

== ENCOUNTER → 2017-08-24 | Outpatient (REF) | payer MEDICARE, MEDICAID ==
[2017-08-24 12:15] LABS: BASO % 0.3 % (0.0-1.0); EOS # 0.1 10^3/uL (0.0-0.50); EOS % 1.1 % (0.0-3.0); IMMATURE GRANULOCYTE % 0.4 % (0-0); LYMPH # 2.6 10^3/uL (1.5-4.5); LYMPH % 23.8 % (24.0-44.0); MEAN CORPUSCULAR HEMOGLOBIN 29.8 pg (27.0-33.0); MEAN CORPUSCULAR HGB CONC 33.4 g/dl (32.0-36.5); MONO # 0.9 10^3/uL (0.0-0.8); MONO % 8.3 % (0.0-5.0); NEUTROPHILS # 7.3 10^3/uL (1.8-7.7); NEUTROPHILS % 66.1 % (36.0-66.0); PLATELET COUNT, AUTOMATED 296 10^3/uL (150-450)
== END ==
LOC: SKLAB6 07:00
DX: N39.0 Urinary tract infection, site not specified (principal)

== ENCOUNTER → 2017-12-15 | Outpatient (REF) | payer MEDICARE, MEDICAID | LOC: SKLAB6 17:19 | DX: M25.532 Pain in left wrist (principal); S52.515A Nondisplaced fracture of left radial styloid process, initial encounter for closed fracture; W19.XXXA Unspecified fall, initial encounter | CPT/HCPCS: 73090 ==

== ENCOUNTER → 2018-01-03 | Outpatient (REF) | payer MEDICARE, MEDICAID ==
[2018-01-03 09:48] LABS: FREE T4 1.02 NG/DL (0.76-1.46)
== END ==
LOC: SKLAB6 08:00
DX: G30.0 Alzheimer's disease with early onset (principal)
CPT/HCPCS: 84443

== ENCOUNTER 2018-01-10 17:54 | Emergency (ER) | payer MEDICARE, MEDICAID ==
[2018-01-10 19:34] LABS: HEMATOCRIT 39.6 % (36.0-47.0); HEMOGLOBIN 13.4 g/dl (12.0-15.5); MEAN CORPUSCULAR HEMOGLOBIN 30.5 pg (27.0-33.0); MEAN CORPUSCULAR HGB CONC 33.8 g/dl (32.0-36.5); MEAN CORPUSCULAR VOLUME 90.2 fl (80.0-96.0); PLATELET COUNT, AUTOMATED 218 10^3/uL (150-450); RED BLOOD COUNT 4.39 10^6/uL (4.00-5.40); RED CELL DISTRIBUTION WIDTH 12.7 % (11.5-14.5); WHITE BLOOD COUNT 7.9 10^3/uL (4.0-10.0)
[2018-01-10 19:51] LABS: APPEARANCE, URINE CLOUDY (CLEAR); BACTERIA, URINE AUTO 2+ (NEGATIVE); BILIRUBIN, URINE AUTO NEGATIVE (NEGATIVE); BLOOD, URINE BLOOD NEGATIVE (NEGATIVE); COLOR, URINE AMBER (YELLOW); GLUCOSE, URINE (UA) AUTO 1+ mg/dL (NEGATIVE); KETONE, URINE AUTO TRACE mg/dL (NEGATIVE); LEUKOCYTE ESTERASE, URINE AUTO 2+ (NEGATIVE); MUCUS, URINE LARGE (NEGATIVE); NITRITE, URINE AUTO NEGATIVE (NEGATIVE); PROTEIN, URINE AUTO NEGATIVE (NEGATIVE); RBC, URINE AUTO 9 /HPF (0-3); SPECIFIC GRAVITY URINE AUTO 1.023 (1.002-1.035); SQUAMOUS EPITHELIAL CELL UR AU 0 /HPF (0-6); UROBILINOGEN, URINE AUTO 0.2 mg/dL (0.0-2.0); WBC, URINE AUTO 47 /HPF (0-3)
[2018-01-10 20:05] LABS: ALBUMIN 3.5 GM/DL (3.2-5.2); ALBUMIN/GLOBULIN RATIO 1.06 (1.00-1.93); ALKALINE PHOSPHATASE 206 U/L (45-117); ALT/SGPT 37 U/L (12-78); ANION GAP 5 MEQ/L (8-16); AST/SGOT 32 U/L (7-37); BILIRUBIN,TOTAL 0.5 MG/DL (0.2-1.0); BLOOD UREA NITROGEN 16 MG/DL (7-18); CALCIUM LEVEL 8.5 MG/DL (8.5-10.1); CARBON DIOXIDE LEVEL 27 MEQ/L (21-32); CHLORIDE LEVEL 109 MEQ/L (98-107); CREATININE FOR GFR 0.37 MG/DL (0.55-1.30); GLOMERULAR FILTRATION RATE > 60.0 (>51); GLUCOSE, FASTING 96 MG/DL (70-100); POTASSIUM SERUM 4.7 MEQ/L (3.5-5.1); SODIUM LEVEL 141 MEQ/L (136-145); TOTAL PROTEIN 6.8 GM/DL (6.4-8.2)
[2018-01-10] MEDS: LevoFLOXacin 500 MG TABLET PO (21:04)
== END 2018-01-10 21:22 | disposition home or self-care (01) ==
LOC: M ED 17:54
DX: N39.0 Urinary tract infection, site not specified (principal); S00.03XA Contusion of scalp, initial encounter; W19.XXXA Unspecified fall, initial encounter; Y92.129 Unspecified place in nursing home as the place of occurrence of the external cause; Y93.9 Activity, unspecified; Y99.9 Unspecified external cause status; Z79.899 Other long term (current) drug therapy; Z88.5 Allergy status to narcotic agent; Z88.0 Allergy status to penicillin; Z88.2 Allergy status to sulfonamides
CPT/HCPCS: 71045

== ENCOUNTER 2018-01-16 13:25 | Outpatient (REF) | payer MEDICARE, MEDICAID | END 2018-01-17 | LOC: SKLAB6 13:25 | DX: S32.512A Fracture of superior rim of left pubis, initial encounter for closed fracture (principal); W19.XXXA Unspecified fall, initial encounter | CPT/HCPCS: 73502 ==

== ENCOUNTER → 2018-05-02 | Outpatient (REF) | payer MEDICARE, MEDICAID ==
[2018-05-02 13:56] LABS: ESTIMATED AVERAGE GLUCOSE 123 MG/DL (60-110); HEMOGLOBIN A1c 5.9 %
== END ==
LOC: SKLAB6 07:00
DX: E11.9 Type 2 diabetes mellitus without complications (principal)
CPT/HCPCS: 83036

== ENCOUNTER → 2018-06-22 | Outpatient (REF) | payer MEDICARE, MEDICAID ==
[2018-06-22 17:15] LABS: BASO % 0.2 % (0.0-1.0); EOS # 0.1 10^3/uL (0.0-0.50); EOS % 0.6 % (0.0-3.0); HEMATOCRIT 43.3 % (36.0-47.0); HEMOGLOBIN 14.8 g/dl (12.0-15.5); IMMATURE GRANULOCYTE % 0.5 % (0-3.0); LYMPH # 3.3 10^3/uL (1.5-4.5); LYMPH % 21.2 % (24.0-44.0); MEAN CORPUSCULAR HEMOGLOBIN 30.8 pg (27.0-33.0); MEAN CORPUSCULAR HGB CONC 34.2 g/dl (32.0-36.5); MONO # 1.2 10^3/uL (0.0-0.8); MONO % 7.7 % (0.0-5.0); NEUTROPHILS # 10.8 10^3/uL (1.8-7.7); NEUTROPHILS % 69.8 % (36.0-66.0); PLATELET COUNT, AUTOMATED 214 10^3/uL (150-450); RED BLOOD COUNT 4.81 10^6/uL (4.00-5.40); WHITE BLOOD COUNT 15.5 10^3/uL (4.0-10.0)
[2018-06-22 17:25] LABS: APPEARANCE, URINE HAZY (CLEAR); BACTERIA, URINE AUTO 3+ (NEGATIVE); BILIRUBIN, URINE AUTO NEGATIVE (NEGATIVE); BLOOD, URINE BLOOD NEGATIVE (NEGATIVE); COLOR, URINE AMBER (YELLOW); GLUCOSE, URINE (UA) AUTO 3+ mg/dL (NEGATIVE); KETONE, URINE AUTO TRACE mg/dL (NEGATIVE); LEUKOCYTE ESTERASE, URINE AUTO NEGATIVE (NEGATIVE); MUCUS, URINE LARGE (NEGATIVE); NITRITE, URINE AUTO NEGATIVE (NEGATIVE); PROTEIN, URINE AUTO 1+ mg/dL (NEGATIVE); RBC, URINE AUTO 0 /HPF (0-3); SPECIFIC GRAVITY URINE AUTO 1.031 (1.002-1.035); SQUAMOUS EPITHELIAL CELL UR AU 0 /HPF (0-6); WBC, URINE AUTO 1 /HPF (0-3)
[2018-06-22 17:50] LABS: ANION GAP 8 MEQ/L (8-16); BLOOD UREA NITROGEN 28 MG/DL (7-18); CALCIUM LEVEL 8.8 MG/DL (8.5-10.1); CARBON DIOXIDE LEVEL 26 MEQ/L (21-32); CHLORIDE LEVEL 110 MEQ/L (98-107); CREATININE FOR GFR 0.38 MG/DL (0.55-1.30); GLOMERULAR FILTRATION RATE > 60.0 (>51); GLUCOSE, FASTING 129 MG/DL (70-100); SODIUM LEVEL 144 MEQ/L (136-145)
== END ==
LOC: SKLAB6 16:05
DX: R50.9 Fever, unspecified (principal)
CPT/HCPCS: 80048

== ENCOUNTER → 2018-06-24 | Outpatient (REF) | payer MEDICARE, MEDICAID ==
[2018-06-24 09:56] LABS: HEMATOCRIT 43.6 % (36.0-47.0); HEMOGLOBIN 14.7 g/dl (12.0-15.5); MEAN CORPUSCULAR HEMOGLOBIN 30.6 pg (27.0-33.0); MEAN CORPUSCULAR HGB CONC 33.7 g/dl (32.0-36.5); MEAN CORPUSCULAR VOLUME 90.6 fl (80.0-96.0); PLATELET COUNT, AUTOMATED 230 10^3/uL (150-450); RED BLOOD COUNT 4.81 10^6/uL (4.00-5.40); RED CELL DISTRIBUTION WIDTH 11.9 % (11.5-14.5); WHITE BLOOD COUNT 10.4 10^3/uL (4.0-10.0)
[2018-06-24 10:24] LABS: ANION GAP 10 MEQ/L (8-16); BLOOD UREA NITROGEN 21 MG/DL (7-18); CALCIUM LEVEL 9.1 MG/DL (8.5-10.1); CARBON DIOXIDE LEVEL 24 MEQ/L (21-32); CHLORIDE LEVEL 109 MEQ/L (98-107); CREATININE FOR GFR 0.55 MG/DL (0.55-1.30); GLOMERULAR FILTRATION RATE > 60.0 (>51); GLUCOSE, FASTING 264 MG/DL (70-100); POTASSIUM SERUM 4.1 MEQ/L (3.5-5.1); SODIUM LEVEL 143 MEQ/L (136-145)
== END ==
LOC: SKLAB6 04:32
DX: N39.0 Urinary tract infection, site not specified (principal)
CPT/HCPCS: 36415

== ENCOUNTER → 2018-08-05 | Outpatient (REF) | payer MEDICARE, MEDICAID | LOC: SKLAB2 07:00 | DX: G30.9 Alzheimer's disease, unspecified (principal) ==